=== PATIENT | male | born 1985 | race Caucasian/White ===

== ENCOUNTER 2022-04-02 08:06 | Outpatient (REF) | payer OTHER, SELFPAY ==
--- NOTE | ~2022-04-02 | MR_ITS ---
EXAMINATION: MR BRAIN WITHOUT AND WITH CONTRAST CLINICAL INFORMATION: Migraine COMPARISON: None TECHNIQUE: Multiplanar multisequence MR imaging of the brain was obtained on the high field 1.5 [facility] MRI unit without and following the administration of 8 mL Gadavist intravenous contrast. FINDINGS: There is no acute infarct on diffusion-weighted imaging. There is no intracranial hemorrhage on iron-sensitive imaging. There is no hydrocephalus, extra-axial collection, or herniation. Normal parenchymal signal characteristics. The ventricles are normal in morphology and size. No abnormal parenchymal or extra-axial enhancement. The major flow voids at the skull base are preserved. Partially empty sella. The cerebellar tonsils are normally positioned. The cerebellum and brainstem are normal. The craniocervical junction is normal. Marrow signal is within normal limits. The visualized soft tissues are without significant abnormality. Bilateral maxillary sinus mucous retention cysts. Right anterior ethmoid sinus opacification MR/MR head/brain wo/w con IMPRESSION: 1. Partially empty sella. As an isolated finding, this is nonspecific and can be a normal variant however can also be seen in the setting of idiopathic intracranial hypertension. 2. Otherwise unremarkable contrast-enhanced MRI of the brain
== END 2022-04-02 08:07 | disposition home or self-care (01) ==
LOC: HO.MRI 08:06
PROVIDERS: PCP Internal Medicine; Visit Provider Psychiatry & Neurology Neurology
DX: G43.009 Migraine without aura, not intractable, without status migrainosus (principal)
CPT/HCPCS: 70553; A9585